=== PATIENT | female | born 1940 | race Caucasian/White ===

== ENCOUNTER 2021-04-15 11:25 | Emergency (ER) | payer MEDICARE, OTHER ==
[~2021-04-15] VITALS: Ht 170.2 cm; Wt 116.1 kg
--- NOTE | 2021-04-15 11:40 | NUR ---
DR ROLLE AT THE BEDSIDE
--- NOTE | 2021-04-15 11:42 | NUR ---
The patient is bibson, c/o L rib pain s/p fall in the bathroom last night 8pm. Rates pain 10/10. Denies LOC. No apparent deformity noted. In room air and denies SOB. Respiration regular and unlabored. Will continue to monitor the patient.
--- NOTE | 2021-04-15 11:46 | NUR ---
The patient is taken to CT.
--- NOTE | 2021-04-15 12:23 | NUR ---
THE PATIENT IS BACK FROM CT
--- NOTE | 2021-04-15 12:38 | NUR ---
PHLEBATOMIST AT THE BEDSIDE
[2021-04-15] MEDS ORDERED: ROPI0.5T4 PO (12:49)
[2021-04-15] MEDS ORDERED: DULO60CA45 PO (12:49)
[2021-04-15] MEDS ORDERED: LIDO30AD10 TP (12:49)
[2021-04-15] MEDS ORDERED: MECL-159 PO (12:49)
[2021-04-15] MEDS ORDERED: LORA10TA7 PO (12:49)
[2021-04-15] MEDS ORDERED: RIVA1PAT3 TD (12:49)
[2021-04-15] MEDS ORDERED: ASPI-1420 PO (12:49)
[2021-04-15] MEDS ORDERED: OMEP1CAP25 PO (12:49)
[2021-04-15] MEDS ORDERED: CHOL100062 PO (12:49)
[2021-04-15] MEDS ORDERED: TELM80TA2 PO (12:49)
[2021-04-15] MEDS ORDERED: NIFE30TA91 PO (12:49)
[2021-04-15] MEDS ORDERED: FURO-145 PO (12:49)
[2021-04-15] MEDS ORDERED: METF-881 PO (12:49)
[2021-04-15] MEDS ORDERED: CALC1TAB30 PO (12:49)
[2021-04-15] MEDS ORDERED: FOLI0.4T6 PO (12:49)
[2021-04-15] MEDS ORDERED: ROSU20TA2 PO (12:49)
[2021-04-15] MEDS ORDERED: LEVO125T8 PO (12:49)
[2021-04-15] MEDS ORDERED: EZET10TA32 PO (12:49)
[2021-04-15] MEDS ORDERED: GUAI100S11 PO (12:49)
[2021-04-15] MEDS ORDERED: CLON0.5T4 PO (12:49)
[2021-04-15] MEDS ORDERED: FEBU40TA PO (12:49)
[2021-04-15] MEDS ORDERED: INSU100V7 SQ (12:49)
[2021-04-15] MEDS ORDERED: NEBI20TA2 PO (12:49)
[2021-04-15 13:36] LABS: BASOPHILS # (AUTO) 0.1 K/uL (0.0-0.2); EOSINOPHILS % (AUTO) 3.4 % (0.0-6.0); HEMATOCRIT 42 % (33-45); HEMOGLOBIN 13.6 g/dL (11.5-14.8); LYMPHOCYTES # (AUTO) 2.6 K/uL (0.8-4.8); LYMPHOCYTES % (AUTO) 32.5 % (20.0-44.0); MEAN CORPUSCULAR HGB CONC 33 g/dl (31.0-36.0); MEAN CORPUSCULAR VOLUME 93 fL (82-100); MONOCYTES # (AUTO) 0.9 K/uL (0.1-1.30); NEUTROPHILS # (AUTO) 4.2 K/uL (1.8-8.9); NEUTROPHILS % (AUTO) 52.1 % (43.0-81.0); PLATELET COUNT (AUTO) 262 K/uL (150-450); RED BLOOD CELL COUNT(AUTO) 4.46 MIL/uL (4.0-5.2); WHITE BLOOD COUNT (AUTO) 8.1 K/uL (4.3-11.0)
[2021-04-15 13:42] LABS: CALCIUM, SERUM 8.7 mg/dL (8.5-10.1)
--- NOTE | 2021-04-15 13:50 | NUR ---
STARTED LEFT UPPER ARM G 18. GOOD FLUSH BACK NOTED. THE PATIENT TOLERATED IV INSERTION WELL.
--- NOTE | 2021-04-15 13:55 | NUR ---
THE PATIENT IS TAKEN TO CT
[2021-04-15] MEDS ORDERED: IOHEXOL-300 100 ML VIAL IV ONE (14:02)
[2021-04-15] MEDS ORDERED: IV NS 0.9% 250 ML IV ONE (14:02)
--- NOTE | 2021-04-15 14:38 | NUR ---
THE PATIENT IS BACK FROM CT
--- NOTE | 2021-04-15 15:22 | NUR ---
IV removed. Catheter intact and site benign. Pressure and 4x4 applied to site. No bleeding noted.Patient discharged to home in stable condition. Written and verbal after care instructions given. Patient verbalizes understanding of instruction. Addendum: 04/15/21 at 1522 by [email or web address] THE PATIENT AND THE SON BOTH ALSO WERE EDUCATED ABOUT NOT TAKING METFORMIN FOR 48HR SINCE THE PATIENT HAD CONTRAST. BOTH VERBALIZED UNDERSTANDING.
[2021-04-15 15:24] VITALS: BP 138/98
== END 2021-04-15 15:24 | disposition home or self-care (01) ==
LOC: ER 11:32
DX: S20.212A Contusion of left front wall of thorax, initial encounter (principal); R51.9 Headache, unspecified; I10 Essential (primary) hypertension; J45.909 Unspecified asthma, uncomplicated; E11.9 Type 2 diabetes mellitus without complications; Z79.899 Other long term (current) drug therapy; Z79.82 Long term (current) use of aspirin; Z79.84 Long term (current) use of oral hypoglycemic drugs; W01.0XXA Fall on same level from slipping, tripping and stumbling without subsequent striking against object, initial encounter; Y93.89 Activity, other specified; Y92.091 Bathroom in other non-institutional residence as the place of occurrence of the external cause; Y99.8 Other external cause status
CPT/HCPCS: 36415; 70450; 71260; 72125; 74177; 80048; 85025; 99285; J7050; Q9967